=== PATIENT | male | born 1995 | race Caucasian/White ===

== ENCOUNTER 2020-03-02 15:44 | Emergency (ER) | payer MEDICAID ==
[~2020-03-02] VITALS: Ht 172.7 cm; Wt 72.7 kg
--- NOTE | 2020-03-02 15:55 | NUR ---
Elizabeth Kennedy #[phone]. Not released to speak to her as of yet.
[2020-03-02 16:21] LABS: CLARITY,URINE CLEAR (Clear); COLOR,URINE YELLOW (Yellow); GLUCOSE, URINE NEGATIVE (Neg); KETONES,URINE NEGATIVE (Neg); LEUKOCYTE ESTERASE ,URINE NEGATIVE (Neg); NITRITES, URINE NEGATIVE (Neg); OCCULT BLOOD,URINE SMALL (Neg); PROTEIN,URINE NEGATIVE (Neg); UROBILINOGEN,URINE 0.2 E.U/dL (0.2-1.0)
[2020-03-02 16:24] LABS: UA COLLECTION TYPE VOIDED
--- NOTE | 2020-03-02 16:24 | NUR ---
patient on high fowlers asleep.
[2020-03-02 16:25] LABS: BACTERIA,URINE NONE SEEN /HPF (Neg); MUCUS STRANDS FEW /LPF (Neg); SQUAMOUS EPITHELIAL CELL,UR FEW /LPF (FEW); WBC,URINE 0-4 /HPF (0-4)
[2020-03-02 16:32] LABS: URINE AMPHETAMINE SCREEN NEGATIVE (Neg); URINE BARBITUATE SCREEN NEGATIVE (Neg); URINE BENZODIAZEPINES SCREEN NEGATIVE (Neg); URINE CANNABINOID SCREEN POSITIVE (Neg); URINE COCAINE SCREEN NEGATIVE (Neg); URINE METHADONE SCREEN NEGATIVE (Neg); URINE OPIATE SCREEN NEGATIVE (Neg); URINE PHENCYCLIDINE SCREEN NEGATIVE (Neg)
[2020-03-02 16:53] LABS: BASOPHILS # (AUTO) 0.1 X10'3 (0-0.2); BASOPHILS % (AUTO) 0.8 % (0-1); EOSINOPHILS # (AUTO) 0.1 X10'3 (0-0.9); EOSINOPHILS % (AUTO) 0.7 % (0-6); HEMATOCRIT 38.8 % (42.0-52.0); HEMOGLOBIN 12.9 g/dl (14.0-17.9); LYMPHOCYTES # (AUTO) 2.1 X10'3 (1.1-4.8); LYMPHOCYTES % (AUTO) 21.9 % (21-51); MEAN CORPUSCULAR HEMOGLOBIN 28.2 PG (27.0-31.0); MEAN CORPUSCULAR HGB CONC 33.2 g/dL (33.0-36.5); MEAN CORPUSCULAR VOLUME 84.8 FL (78-98); MEAN PLATELET VOLUME 7.6 FL (7.4-10.4); MONOCYTES # (AUTO) 0.6 X10'3 (0-0.9); MONOCYTES % (AUTO) 6.7 % (2-12); NEUTROPHILS # (AUTO) 6.7 X10'3 (1.8-7.7); NEUTROPHILS % (AUTO) 69.9 % (42-75); PLATELET COUNT 296 X10'3 (140-440); RED BLOOD COUNT 4.57 X10'6 (4.70-6.10); RED CELL DISTRIBUTION WIDTH 13.4 % (11.5-14.5); WHITE BLOOD COUNT 9.6 X10'3 (4.5-11.0)
[2020-03-02] MEDS ORDERED: bacitracin 15gm ointment TP ONE (16:55)
[2020-03-02 17:12] LABS: ALBUMIN 4.4 G/DL (3.4-5.0); ANION GAP 4 (8-16); BLOOD UREA NITROGEN 11 MG/DL (7-18); CALCIUM 9.2 MG/DL (8.5-10.1); CHLORIDE 105 MMOL/L (99-107); CREATININE 0.92 MG/DL (0.60-1.10); ETHANOL < 0.010 GM/DL (0.0-0.010); GLUCOSE 99 MG/DL (70-104); POTASSIUM 3.8 MMOL/L (3.5-5.1); SODIUM 138 MMOL/L (135-145); TOTAL CARBON DIOXIDE 28.8 MMOL/L (24-32); eGFR > 90 ML/MIN
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
--- NOTE | 2020-03-02 17:35 | NUR ---
Faxed Packet to [facility]
[2020-03-02] MEDS ORDERED: LORazepam 1 MG tablet PO ONE (22:45)
--- NOTE | 2020-03-02 22:55 | NUR ---
This patient has a new 5150 hold placed by Alex from [facility]. Patient reacts with frustration and demands [facility] supervisor knitting be notified. Patient does not believe he should be on a hold. Patient offered Ativan, he declines but states he might want it in a few minutes.
--- NOTE | 2020-03-02 23:10 | NUR ---
Patient accepts PO Ativan. He is given toiletries, he goes to the bathroom to brush teeth and groom self.
--- NOTE | 2020-03-03 00:50 | NUR ---
Patient sleeping quietly on his right side, in view from nursing sttion.
--- NOTE | 2020-03-03 02:00 | NUR ---
Patient sleeping on his right side. No dist. In view from nursing station.
--- NOTE | 2020-03-03 03:14 | NUR ---
Patient is sleeping quietly in supine position.
[2020-03-03 05:28] VITALS: BP 97/52
--- NOTE | 2020-03-03 06:00 | NUR ---
Patient sleeping quietly, low fowlers position.
--- NOTE | 2020-03-03 06:40 | NUR ---
PT RESTING WITH EYES CLOSED, EFFORTLESS RESPIRATIONS OBSERVED.
--- NOTE | 2020-03-03 09:00 | NUR ---
PT REMAINS CALM AND COOPERATIVE. PT TO BE SEEN BY [facility] FOR RE-EVALUATION TODAY.
--- NOTE | 2020-03-03 13:35 | NUR ---
PT WAS SEEN/EVALUATED BY [facility] WORKER LUIZ AND TAKEN OFF 5150. SAFETY PLAN DEVISED AND PT GOING HOME TO/WITH GIRLFRIEND.
== END 2020-03-03 14:04 | disposition home or self-care (01) ==
LOC: ER 15:45
DX: S00.91XA Abrasion of unspecified part of head, initial encounter (principal); R45.851 Suicidal ideations; F12.90 Cannabis use, unspecified, uncomplicated; Z88.1 Allergy status to other antibiotic agents; Z88.2 Allergy status to sulfonamides; V87.8XXA Person injured in other specified noncollision transport accidents involving motor vehicle (traffic), initial encounter; Y93.89 Activity, other specified; Y92.410 Unspecified street and highway as the place of occurrence of the external cause; Y99.8 Other external cause status
CPT/HCPCS: 36415; 80048; 80305; 80320; 81001; 84443; 85025; 99285

== ENCOUNTER 2020-05-24 11:44 | Emergency (ER) | payer MEDICAID ==
[~2020-05-24] VITALS: Ht 172.7 cm; Wt 75.0 kg
--- NOTE | 2020-05-24 12:50 | NUR ---
Pt is calm and cooperative. Pt has been using the phone to call his fiance and becomes tearful and anxious when he gets off the phone
[2020-05-24] MEDS ORDERED: hydrOXYzine 25 MG tablet PO ONE (13:30)
[2020-05-24 13:43] LABS: URINE AMPHETAMINE SCREEN NEGATIVE (Neg); URINE BARBITUATE SCREEN NEGATIVE (Neg); URINE BENZODIAZEPINES SCREEN NEGATIVE (Neg); URINE CANNABINOID SCREEN POSITIVE (Neg); URINE COCAINE SCREEN NEGATIVE (Neg); URINE METHADONE SCREEN NEGATIVE (Neg); URINE OPIATE SCREEN NEGATIVE (Neg); URINE PHENCYCLIDINE SCREEN NEGATIVE (Neg)
--- NOTE | 2020-05-24 13:50 | NUR ---
Pt has no change in condition. Pt has sitter nearby and is in line of sight of the nurse's station.
[2020-05-24 14:11] LABS: BASOPHILS % (AUTO) 0.4 % (0-1); EOSINOPHILS % (AUTO) 0.4 % (0-6); LYMPHOCYTES # (AUTO) 2.4 X10'3 (1.1-4.8); LYMPHOCYTES % (AUTO) 23.9 % (21-51); MEAN CORPUSCULAR HEMOGLOBIN 27.9 PG (27.0-31.0); MEAN CORPUSCULAR HGB CONC 33.4 g/dL (33.0-36.5); MEAN CORPUSCULAR VOLUME 83.7 FL (78-98); MEAN PLATELET VOLUME 7.1 FL (7.4-10.4); MONOCYTES # (AUTO) 0.6 X10'3 (0-0.9); MONOCYTES % (AUTO) 6.3 % (2-12); NEUTROPHILS # (AUTO) 6.9 X10'3 (1.8-7.7); PLATELET COUNT 250 X10'3 (140-440); RED BLOOD COUNT 4.66 X10'6 (4.70-6.10); RED CELL DISTRIBUTION WIDTH 12.9 % (11.5-14.5)
[2020-05-24 14:21] LABS: ALANINE AMINOTRANSFERASE 24 U/L (12-78); ALBUMIN 3.8 G/DL (3.4-5.0); ALBUMIN/GLOBULIN RATIO 1.2 (1.1-1.5); ALKALINE PHOSPHATASE 51 IU/L (46-116); ANION GAP 7 (8-16); ASPARTATE AMINO TRANSFERASE 22 U/L (10-37); BILIRUBIN,TOTAL 0.5 MG/DL (0.1-1.0); BLOOD UREA NITROGEN 9 MG/DL (7-18); BUN/CREATININE RATIO 11.8 (5.4-32.0); CALCIUM 8.7 MG/DL (8.5-10.1); CHLORIDE 108 MMOL/L (99-107); CREATININE 0.76 MG/DL (0.60-1.10); GLUCOSE 105 MG/DL (70-104); POTASSIUM 3.8 MMOL/L (3.5-5.1); SODIUM 142 MMOL/L (135-145); TOTAL CARBON DIOXIDE 27.2 MMOL/L (24-32); eGFR > 90 ML/MIN
[2020-05-24 14:26] LABS: ETHANOL < 0.010 GM/DL (0.0-0.010)
--- NOTE | 2020-05-24 14:45 | NUR ---
Pt is resting, no complaints at this time.
--- NOTE | 2020-05-24 15:18 | NUR ---
PACKET FAXED TO [facility]
--- NOTE | 2020-05-24 15:40 | NUR ---
Pt is resting with even and unlabored respirations.
--- NOTE | 2020-05-24 16:12 | NUR ---
Cecille [facility] staff member is with the patient at this time.
[2020-05-24] MEDS ORDERED: SERT50TA10 PO (16:22)
[2020-05-24] MEDS ORDERED: HYDR-3686 PO (16:22)
--- NOTE | 2020-05-24 16:48 | NUR ---
The laceration on the left eyebrow was cleansed with normal saline and gauze. Pt's laceration noted to be approximately 1 cm in length. MANNY Ortiz notified. Dermabond to bedside to attempt to approximate the wound.
--- NOTE | 2020-05-24 18:59 | NUR ---
Patient awoke and ate partial dinner. He then returned to sleep. Patient is in direct view from the nursing station.
--- NOTE | 2020-05-24 19:03 | NUR ---
Christopher kennedy in ED - 05/24/20 at 2153 by SONAM Patient is sleeping quietly on his right side. In direct view from nursing station.
--- NOTE | 2020-05-24 20:03 | NUR ---
Patient sleeps quietly. No distress.
[2020-05-24] MEDS: hydrOXYzine 25 MG tablet PO SCH (20:19)
[2020-05-24 20:26] LABS: CLARITY,URINE CLEAR (Clear); COLOR,URINE STRAW (Yellow); GLUCOSE, URINE NEGATIVE (Neg); KETONES,URINE NEGATIVE (Neg); LEUKOCYTE ESTERASE ,URINE NEGATIVE (Neg); NITRITES, URINE NEGATIVE (Neg); OCCULT BLOOD,URINE NEGATIVE (Neg); PH,URINE 6.5 (4.8-8.0); PROTEIN,URINE NEGATIVE (Neg); UROBILINOGEN,URINE 0.2 E.U/dL (0.2-1.0)
[2020-05-24 20:32] LABS: UA COLLECTION TYPE CLN CATCH MIDSTREAM
--- NOTE | 2020-05-24 21:13 | NUR ---
Patient awakes, requests food. He was given and ate a turkey sandwich.
--- NOTE | 2020-05-24 21:51 | NUR ---
Patients right nare swabbed for rapid covid sample. Patient tollerated well.
--- NOTE | 2020-05-25 00:14 | NUR ---
Patient sleeping quietly, low fowlers, head turned to the right.
--- NOTE | 2020-05-25 00:44 | NUR ---
Ia, a nurse from [facility] called for report on this patient. A report was given. This patients case will be reviewed for possible admit.
--- NOTE | 2020-05-25 02:06 | NUR ---
Patient sleeping on his right side, no distress.
--- NOTE | 2020-05-25 03:40 | NUR ---
Patient is sleeping quietly on his left side.
--- NOTE | 2020-05-25 05:00 | NUR ---
Patient sleeping quietly on his left side. In view from nursing station.
[2020-05-25 05:23] VITALS: BP 116/66
--- NOTE | 2020-05-25 07:05 | NUR ---
PT RESTING EYES CLOSED RR EQUAL AND UNLABORED
[2020-05-25] MEDS: hydrOXYzine 25 MG tablet PO SCH (07:48)
--- NOTE | 2020-05-25 07:53 | NUR ---
PT REQUESTED MEDS FOR ANXIETY. PT GIVEN SCHEDULED ATTARAX AND ZOLOFT. PT ON PHONE WITH GF. PT MOOD IS STABLE AT THIS TIME
[2020-05-25] MEDS ORDERED: sertraline 50mg tablet PO SCH (08:00)
--- NOTE | 2020-05-25 08:15 | NUR ---
CALL FROM [facility] FROM [facility] [place] WITH BE HERE APROX 1.5 HRS TO TAKE PT TO [facility]
== END 2020-05-25 09:41 ==
LOC: ER 11:44
DX: S01.112A Laceration without foreign body of left eyelid and periocular area, initial encounter (principal); F41.9 Anxiety disorder, unspecified; Z20.828 Contact with and (suspected) exposure to other viral communicable diseases; Y04.0XXA Assault by unarmed brawl or fight, initial encounter; Y93.89 Activity, other specified; Y92.89 Other specified places as the place of occurrence of the external cause; Y99.8 Other external cause status; Z88.1 Allergy status to other antibiotic agents; Z79.899 Other long term (current) drug therapy
CPT/HCPCS: 12011; 36415; 80053; 80305; 80320; 81003; 85025; 87635; 99285; C9803; Q0177; 12001

== ENCOUNTER 2021-01-13 12:30 | Emergency (ER) | payer BC, MEDICAID ==
[~2021-01-13] VITALS: Ht 172.7 cm; Wt 71.8 kg
[~2021-01-13 12:30] MED LIST: HYDR-3686 PO; SERT-433 PO
[2021-01-13 12:53] VITALS: BP 109/77
[2021-01-13] MEDS ORDERED: LIDOcaine 1% W/epiNEPHrine 1:100,000 20ml vial ONE (16:00)
== END 2021-01-13 12:54 ==
LOC: ER 12:30
DX: S01.112A Laceration without foreign body of left eyelid and periocular area, initial encounter (principal); G40.909 Epilepsy, unspecified, not intractable, without status epilepticus; F17.200 Nicotine dependence, unspecified, uncomplicated; F12.90 Cannabis use, unspecified, uncomplicated; Z88.1 Allergy status to other antibiotic agents; Z88.2 Allergy status to sulfonamides; Z79.899 Other long term (current) drug therapy
CPT/HCPCS: 12001; 99283